=== PATIENT | male | born 1960 | race Caucasian/White ===

== ENCOUNTER 2022-02-12 17:54 | Observation (INO) ==
[2022-02-12] MEDS ORDERED: Aspirin 81 MG TAB.CHEW PO ONE (18:37)
[2022-02-12 18:56] LABS: Basophils % 0.4 %; Eosinophils # 0.1 K/mcL (0.0-0.6); Hematocrit 45.8 % (37.5-50.1); Hemoglobin 15.7 g/dL (12.9-16.9); Immature Granulocytes % 0.2 % (0-4); Lymphocytes # 2.4 K/mcL (0.6-4.6); Lymphocytes % 26.4 %; Mean Corpuscular HGB Conc 34.3 g/dL (31.6-35.5); Mean Corpuscular Volume 87.6 fL (83.0-100.0); Mean Platelet Volume 11.1 fL (9.4-12.4); Monocytes # 0.6 K/mcL (0.0-1.3); Monocytes % 6.8 %; Platelet Count 254 K/mcL (140-400); Red Blood Count 5.23 M/mcL (4.19-5.50); Red Cell Distribution Width 13.4 % (11.5-14.5); Segmented Neutrophils % 65.2 %; White Blood Count 9.2 K/mcL (4.3-11.1)
[2022-02-12 19:15] LABS: BUN/Creatinine Ratio 14 (6-26); Blood Urea Nitrogen 15 mg/dL (8-23); Calcium 9.4 mg/dL (8.6-10.3); Carbon Dioxide 23 mEq/L (23-29); Chloride 105 mEq/L (98-107); Glucose 86 mg/dL (70-105); Osmolality,Calculated 286 (280-300); Potassium 3.6 mEq/L (3.5-5.1); Sodium 138 mEq/L (136-145); Troponin I 0.04 ng/mL (< 0.04); eGFR For African Americans > 60 (> 60); eGFR For Non-African Americans > 60 (> 60)
[2022-02-12] MEDS ORDERED: Ondansetron 4 MG/2 ML VIAL IVP PRN (20:52)
[2022-02-12] MEDS ORDERED: Naloxone 0.4 MG/ML INJ IVP PRN (20:52)
[2022-02-12] MEDS ORDERED: Acetaminophen 325 MG TABLET PO PRN (20:52)
[2022-02-12] MEDS ORDERED: Melatonin 3 MG TABLET PO PRN (20:52)
[2022-02-13] MEDS ORDERED: Perflutren Lipid Microsphere 1.3 ML in 0.9 % Sodium Chloride 8.7 ML IVP PRN (01:13)
[2022-02-13] MEDS: *HR* Heparin 5,000 UNIT/ML VIAL SQ SCH ×2 (05:51→18:02)
[2022-02-13 06:04] LABS: Hematocrit 46.9 % (37.5-50.1); Hemoglobin 15.9 g/dL (12.9-16.9); Mean Corpuscular HGB Conc 33.9 g/dL (31.6-35.5); Mean Corpuscular Hemoglobin 30.1 pg (28.0-33.3); Mean Corpuscular Volume 88.8 fL (83.0-100.0); Mean Platelet Volume 10.4 fL (9.4-12.4); Platelet Count 231 K/mcL (140-400); Red Blood Count 5.28 M/mcL (4.19-5.50); Red Cell Distribution Width 13.5 % (11.5-14.5); White Blood Count 6.8 K/mcL (4.3-11.1)
[2022-02-13 06:22] LABS: BUN/Creatinine Ratio 13 (6-26); Blood Urea Nitrogen 13 mg/dL (8-23); Calcium 8.9 mg/dL (8.6-10.3); Carbon Dioxide 28 mEq/L (23-29); Chloride 105 mEq/L (98-107); Glucose 101 mg/dL (70-105); Magnesium 2.1 mg/dL (1.6-2.6); Osmolality,Calculated 288 (280-300); Potassium 3.9 mEq/L (3.5-5.1); Sodium 139 mEq/L (136-145); eGFR For African Americans > 60 (> 60); eGFR For Non-African Americans > 60 (> 60)
[2022-02-13] MEDS: amLODIPine 5 MG TABLET PO SCH (10:36)
[2022-02-13] MEDS: Aspirin Enteric Coated 81 MG Tablet PO SCH (10:36)
[2022-02-13] MEDS ORDERED: Regadenoson 0.4 MG/5 ML SYRINGE IVP ONE (11:09)
[2022-02-13] MEDS: Famotidine 20 MG TABLET PO SCH (22:44)
[2022-02-13] MEDS: Metoprolol XL (24 HR) Succ 25 MG TAB.ER.24H PO SCH (22:44)
[2022-02-14 05:45] LABS: Chol/HDL Ratio 5.7 (0-4.9)
[2022-02-14] MEDS: *HR* Heparin 5,000 UNIT/ML VIAL SQ SCH ×2 (05:45→16:35)
[2022-02-14] MEDS: Aspirin Enteric Coated 81 MG Tablet PO SCH (08:07)
[2022-02-14] MEDS: Cholecalciferol (D-3) 1,000 UNIT (25MCG) TABLET PO SCH (08:07)
[2022-02-14] MEDS: amLODIPine 5 MG TABLET PO SCH (08:07)
[2022-02-14] MEDS: Metoprolol XL (24 HR) Succ 25 MG TAB.ER.24H PO SCH ×2 (08:07→22:00)
[2022-02-14] MEDS: Famotidine 20 MG TABLET PO SCH ×2 (08:07→22:00)
[2022-02-14 08:53] LABS: Basophils % 0.6 %; Eosinophils # 0.1 K/mcL (0.0-0.6); Eosinophils % 0.8 %; Hematocrit 47.9 % (37.5-50.1); Hemoglobin 15.9 g/dL (12.9-16.9); Immature Granulocytes % 0.3 % (0-4); Lymphocytes # 1.6 K/mcL (0.6-4.6); Lymphocytes % 24.2 %; Mean Corpuscular HGB Conc 33.2 g/dL (31.6-35.5); Mean Corpuscular Hemoglobin 30.1 pg (28.0-33.3); Mean Corpuscular Volume 90.5 fL (83.0-100.0); Mean Platelet Volume 10.8 fL (9.4-12.4); Monocytes # 0.4 K/mcL (0.0-1.3); Neutrophils # 4.5 K/mcL (1.6-8.9); Platelet Count 222 K/mcL (140-400); Red Blood Count 5.29 M/mcL (4.19-5.50); Red Cell Distribution Width 13.4 % (11.5-14.5); Segmented Neutrophils % 68.1 %; White Blood Count 6.6 K/mcL (4.3-11.1)
[2022-02-14 09:13] LABS: BUN/Creatinine Ratio 14 (6-26); Blood Urea Nitrogen 15 mg/dL (8-23); Carbon Dioxide 26 mEq/L (23-29); Chloride 107 mEq/L (98-107); Glucose 107 mg/dL (70-105); Osmolality,Calculated 289 (280-300); Potassium 4.3 mEq/L (3.5-5.1); Sodium 139 mEq/L (136-145); eGFR For African Americans > 60 (> 60); eGFR For Non-African Americans > 60 (> 60)
[2022-02-14 10:13] LABS: Alanine Aminotransferase 51 Units/L (7-52); Albumin 4.4 g/dL (3.5-5.7); Albumin/Globulin Ratio 1.9 (1.1-2.2); Alkaline Phosphatase 104 Units/L (34-104); Aspartate Amino Transferase 28 Units/L (13-39); Bilirubin,Direct 0.1 mg/dL (0.0-0.2); Bilirubin,Indirect 0.7 mg/dL (0.0-1.0); Bilirubin,Total 0.8 mg/dL (0.3-1.0); Globulin 2.3 g/dL (2.4-3.5); Total Protein 6.7 g/dL (6.4-8.9)
[2022-02-14] MEDS ORDERED: Heparin 1,000 UNITS/500 mL 500 ML ONE (13:28)
[2022-02-14] MEDS ORDERED: *HR* Heparin 10,000 UNIT/10 ML VIAL ONE ×2 (13:28→14:26)
[2022-02-14] MEDS ORDERED: *HR* Midazolam HCl 2 MG/2 ML VIAL ONE ×2 (13:28→14:18)
[2022-02-14] MEDS ORDERED: *HR* FentaNYL (PF) 100 MCG/2 ML VIAL ONE (13:28)
[2022-02-14] MEDS ORDERED: 0.9 % Sodium Chloride 2,000 ML ONE (13:29)
[2022-02-14] MEDS ORDERED: ISOVUE-370 200 ML INFUS..BTL ONE (13:29)
[2022-02-14] MEDS ORDERED: Nitroglycerin 1,000 MCG/5 ML VIAL IV ONE (13:29)
[2022-02-14] MEDS ORDERED: *HR* Ticagrelor 90 MG TABLET ONE (14:27)
[2022-02-14] MEDS ORDERED: Tirofiban 12.5 MG/250ML 12.5 MG/250 ML BAG ONE (14:36)
[2022-02-14] MEDS: *HR* Ticagrelor 90 MG TABLET PO SCH (22:00)
[2022-02-15 01:46] LABS: Hematocrit 44.5 % (37.5-50.1); Hemoglobin 15.1 g/dL (12.9-16.9)
[2022-02-15 02:13] LABS: Troponin I 0.06 ng/mL (< 0.04)
[2022-02-15 02:20] LABS: BUN/Creatinine Ratio 15 (6-26); Blood Urea Nitrogen 17 mg/dL (8-23); eGFR For African Americans > 60 (> 60); eGFR For Non-African Americans > 60 (> 60)
[2022-02-15] MEDS: *HR* Heparin 5,000 UNIT/ML VIAL SQ SCH (06:16)
[2022-02-15 07:09] VITALS: BP 113/76; PULSE 65; TEMP 98; O2SAT 95
[2022-02-15] MEDS: *HR* Ticagrelor 90 MG TABLET PO SCH (08:43)
[2022-02-15] MEDS: Metoprolol XL (24 HR) Succ 25 MG TAB.ER.24H PO SCH (08:43)
[2022-02-15] MEDS: Cholecalciferol (D-3) 1,000 UNIT (25MCG) TABLET PO SCH (08:43)
[2022-02-15] MEDS: Aspirin Enteric Coated 81 MG Tablet PO SCH (08:43)
[2022-02-15] MEDS: amLODIPine 5 MG TABLET PO SCH (08:43)
[2022-02-15] MEDS: Famotidine 20 MG TABLET PO SCH (08:43)
== END 2022-02-15 10:34 | disposition home or self-care (01) ==
LOC: 3BNU 17:54 → EMEROOARM 17:54 → SUATTDRO 20:08 → 3BNU 20:54
PROVIDERS: ADMIT Family Medicine; ATTEND Internal Medicine